=== PATIENT | female | born 1945 | race African-American/Black ===

== ENCOUNTER 2017-08-21 14:21 | Emergency (ER) | payer OTHER ==
[~2017-08-21] VITALS: Ht 157.5 cm; Wt 83.0 kg
[~2017-08-21 14:21] MED LIST: TYLE3 PO; Z.0.NO CURRENT MEDS
[2017-08-21 14:24] VITALS: BP 142/68; PULSE 78; RESP 14; TEMP 98.8; O2SAT 100
--- NOTE | 2017-08-21 16:01 | RADRPT ---
EXAM DATE/TIME: 08/21/2017 15:45 [place] COMPARISON: No previous studies available for comparison. INDICATIONS : Pain in distal phalanx on left 3rd digit. MEDICAL HISTORY : None. SURGICAL HISTORY : None. ENCOUNTER: Initial ACUITY: 1 day PAIN SCORE: 5/10 LOCATION: Left 3rd digit. FINDINGS: No definite fractures, or dislocations are identified. No definite lytic or sclerotic lesion is seen . Slight osteopenia is seen. CONCLUSION: Slight osteopenia. KNancy Verma MD on August 21, 2017 at 15:59 Board Certified Radiologist. This report was verified electronically.
--- NOTE | 2017-08-21 16:06 | PD ---
HPI Chief Complaint: Pain: Acute or Chronic Time Seen by Provider: 15:45 Travel History International Travel<30 days: No Contact w/Intl Traveler<30days: No Traveled to known affect area: No History of Present Illness HPI 72-year-old right-hand dominant female presents to the ED for evaluation of 10 out of 10 pain at the distal tuft of the third digit of the left hand. Onset gradual over the last week. Patient states that she "may have" nicked her finger with a knife about 10 days ago. She states that there was a small crust of the area which fell off. She denies fevers, chills, N/V, numbness, tingling, weakness, limitations in range of motion of the extremity. She states that her tetanus is UTD. PFSH Past Medical History Arthritis: Yes Blood Disorders: No Cardiovascular Problems: No Diminished Hearing: No Endocrine: No Gastrointestinal Disorders: Yes (SPLENECTOMY) Glaucoma: No Genitourinary: No Immune Disorder: No Musculoskeletal: No Neurologic: No Reproductive: No Respiratory: No Tubal Ligation: Yes Past Surgical History Abdominal Surgery: Yes (SPLENECTOMY) Gynecologic Surgery: Yes (TUBAL LIGATION) Other Surgery: Yes (BENIGN CYST REMOVED FROM CHEST WALL) Social History Alcohol Use: No Tobacco Use: Yes (07/20 PPD) Substance Use: No Allergies-Medications (Allergen,Severity, Reaction): Coded Allergies: No Known Allergies (Verified Adverse Reaction, Unknown, 08/21/17) Reported Meds & Prescriptions Reported Meds & Active Scripts Active Bactrim DS (Sulfamethoxazole-Trimethoprim) 800-160 Mg Tab 1 Tab PO BID Physical Exam Narrative GENERAL: Well-nourished, well-developed pleasant -[place] female in no acute distress. SKIN: Focused skin assessment warm/dry. There is a subcentimeter wound of the distal tuft of the middle finger on the third finger. This is well healing with a small crust. The surrounding area is mildly erythematous and tender. No cellulitic streaking. No fluctuance. HEAD: Normocephalic. EYES: No scleral icterus. No injection or drainage. NECK: Supple, trachea midline. No JVD or lymphadenopathy. CARDIOVASCULAR: Regular rate and rhythm without murmurs, gallops, or rubs. RESPIRATORY: Breath sounds equal bilaterally. No accessory muscle use. GASTROINTESTINAL: Abdomen soft, non-tender, nondistended. MUSCULOSKELETAL: No cyanosis, or edema. FOCUSED LEFT UPPER EXTREMITY EXAM: Patient has strong finger to thumb opposition with each digit. Patient is able to flex and extend the digits of the right hand. 2+ radial pulse. Neurovascularly intact distally. BACK: Nontender without obvious deformity. No CVA tenderness. Data Data Last Documented VS Vital Signs Date Time Temp Pulse Resp B/P (MAP) Pulse Ox O2 Delivery O2 Flow Rate FiO2 08/21/17 16:20 08/21/17 14:24 98.8 78 14 100 Room Air Orders Orders Finger ([id number]) (08/21/17 15:39) Ice/Cold Pack (08/21/17 15:39) Ibuprofen (Motrin) (08/21/17 16:15) Ed Discharge Order (08/21/17 16:10) [facility] Medical Decision Making Medical Screen Exam Complete: Yes Emergency Medical Condition: Yes Differential Diagnosis Wound infection versus cellulitis versus felon versus retained foreign body versus tendinitis versus other Narrative Course 72-year-old right-hand dominant female presents to the ED for evaluation of 10/ 10 pain at the distal tuft of the third digit of the left hand. Vitals reviewed. On exam the patient has a subcentimeter wound of the lateral aspect of the distal tuft of the third finger. It is well-healed without signs of infection. Does have a little bit of localized erythema and tenderness of the area. She has full flexion and extension as well as strong opposition with each digit of the left hand. I suspect localized cellulitis. However, felon is on the differential. I discussed my differential with the patient. Will trial on course of outpatient Bactrim DS. She was administered a dose of ibuprofen in the ED. Patient's instructed to return to the ED in 3 days if symptoms have not improved. She indicated understanding of the instructions and is agreeable to the care plan. The patient stable and discharged home. Diagnosis Primary Impression: Cellulitis of finger of left hand Referrals: Herberth Stovall III, MD Hand Surgeon Patient Instructions: Cellulitis (ED), General Instructions Additional Instructions: Rest, hydrate. Keep the wound clean, dry and covered. Take the antibiotics as prescribed until EVERY DOSE is gone. Take Tylenol or Motrin as directed on the label, as needed for pain. Follow up with your primary provider or the hand surgeon. Return to the ED for WORSENING SYMPTOMS or any urgent or emergent medical condition. Med/Other Pt SpecificInfo: Prescription(s) given Scripts Sulfamethoxazole-Trimethoprim (Bactrim DS) 800-160 Mg Tab 1 TAB PO BID for Infection, #14 TAB 0 Refills Prov: Christofer Deras MD 08/21/17 Disposition: 01 DISCHARGE HOME Condition: Stable Nataly Arguelles Aug 21, 2017 16:06
[2017-08-21] MEDS ORDERED: BACT800T5 PO (16:07)
[2017-08-21] MEDS ORDERED: IBUPROFEN 600 MG TAB PO ONE (16:15)
== END 2017-08-21 16:33 | disposition home or self-care (01) ==
LOC: NEPA 14:21
DX: L03.114 Cellulitis of left upper limb (principal); M85.842 Other specified disorders of bone density and structure, left hand; M19.90 Unspecified osteoarthritis, unspecified site; F17.200 Nicotine dependence, unspecified, uncomplicated
CPT/HCPCS: 73140; 99283